=== PATIENT | male | born 1980 | race Two or more races ===

== ENCOUNTER → 2017-03-27 | Outpatient (CLI) | payer OTHER | END | disposition home or self-care (01) | LOC: MI 09:40 | PROC: BR37ZZZ Magnetic Resonance Imaging (MRI) of Thoracic Spine (ICD-10-PCS; principal; 2017-03-27) | PROC: BR39ZZZ Magnetic Resonance Imaging (MRI) of Lumbar Spine (ICD-10-PCS; 2017-03-27) | DX: M54.5 Low back pain (principal) | CPT/HCPCS: A9579 ==